=== PATIENT | male | born 1945 | race Caucasian/White ===

== ENCOUNTER → 2016-08-02 | Outpatient (REF) | payer MEDICARE, OTHER ==
[~2016-08-02] MED LIST: AMOX1TAB12 PO; CEPH-507 PO; CPR500T PO; DOXA8TAB37 PO; FLUO40CA12 PO; HYDR-3811 PO; ONDA4TAB8 PO
[2016-08-02 12:52] LABS: ALBUMIN 4.1 g/dL (3.4-5.0); ANION GAP 16.8 MEQ/L (3-15); CALCULATED IONIZED CALCIUM 4.3 mg/dL (3.8-4.6); TOTAL PROTEIN 7.3 g/dL (6.4-8.5)
== END ==
LOC: LAB 12:02
PROVIDERS: ATTEND Family Medicine
DX: Z00.00 Encounter for general adult medical examination without abnormal findings (principal); E78.4 Other hyperlipidemia
CPT/HCPCS: 80053; 80061

== ENCOUNTER 2016-08-10 08:17 | Emergency (ER) | payer MEDICARE, OTHER ==
[~2016-08-10] VITALS: Ht 182.9 cm; Wt 77.0 kg
--- OUTSIDE RECORDS SUMMARY | 2016-08-10 08:22 | XMS REPORT | Continuity of Care Document ---
Author Author [facility] Organization [facility] Address Unknown Phone Unavailable Care Team Providers Care Roll Cutting Operator Name Role Phone RAMIREZ JIMENEZ MD PCP [phone] Insurance Providers Payer Name Policy Number Subscriber Name Relationship Medicare A And B [id number] Jalil Hedrick 18 Self / Same As Patient Medicare Other [id number] Jalil Hedrick 17 Self / Same As Patient Chief Complaint and Reason for Visit Chief Complaint GI Complaint Reason for Visit Diverticulitis Problems Medical Problems Problem Onset Date Status SEPSIS 09/22/2012 Active Colonoscopy Unknown Active Syncope ~12/08/2013 Active Orthostatic tremor Unknown Active Diverticulitis Unknown Active Medications Medication Dose Route Sig Days/Qty Instructions Order Date Discontinued Date Status Doxazosin Mesylate 8 Mg ORAL DAILY 09/22/12 12/23/14 Discontinued Fluoxetine Hcl 40 Mg ORAL DAILY 12/08/13 Active Ciprofloxacin 500 Mg ORAL TWICE A DAY 14 Qty 12/23/14 Active Ondansetron 4 Mg ORAL EVERY 4HRS PRN NAUSEA 10 Qty 12/23/14 Active Hydrocodone Bit/Acetaminophen 1 Each ORAL EVERY 4HRS PRN PAIN 15 Qty Active Social History No social history. Hospital Discharge Instructions No hospital discharge instructions. Plan of Care Discharge Date 12/23/14 3:04pm Disposition 01 HOME OR SELF-CARE Condition at Discharge Stable Instructions/Education Provided Diverticulitis (ED) Diverticulitis Diet (ED) Prescriptions See Medications Section Referrals RAMIREZ JIMENEZ MD Additional Instructions/Education Cipro 500 mg two times daily Metronidazole 500 mg three times daily Zofran 4 mg ODT - dissolve in mouth every 4 hours as needed for nausea Hydrocodone 7.5/325 every 4 hours as needed for pain Return if symptoms worsen Follow up with Dr. Jimenez at 9:30 tomorrow. Functional Status No functional status results. Allergies, Adverse Reactions, Alerts Allergen Type Severity Reaction Status Last Updated No Known Allergies Allergy Active 09/22/12 Immunizations No immunization records. Vital Signs Acute Vital Signs Vital Response Date/Time Temperature (Fahrenheit) 98.5 Pulse 72 bpm Respirations 21 Height 6 ft 1 in Weight 169 lb Body Mass Index 22.0 kg/m^2 Results Test Source Date Result Interp. Ref. Range Comments Urine Leukocyte Esterase December 23, 2014 12:29pm Negative Negative Urine collection method Clean Catch Urine Urobilinogen December 23, 2014 12:29pm 0.2 mg/dL 0.2-1.0 Urine collection method Clean Catch Urine Bilirubin December 23, 2014 12:29pm Negative Negative Urine collection method Clean Catch Urine Nitrite December 23, 2014 12:29pm Negative Negative Urine collection method Clean Catch Urine Ketones December 23, 2014 12:29pm Negative Negative Urine collection method Clean Catch Urine RBC (Auto) December 23, 2014 12:29pm Negative Negative Urine collection method Clean Catch Urine Glucose (UA) December 23, 2014 12:29pm Negative Negative Urine collection method Clean Catch Urine Protein December 23, 2014 12:29pm Negative Negative Urine collection method Clean Catch Urine Specific [place] December 23, 2014 12:29pm 1.020 1.005-1.030 Urine collection method Clean Catch Urine pH December 23, 2014 12:29pm 7.5 5.0 - 8.0 Urine collection method Clean Catch Urine Clarity December 23, 2014 12:29pm Clear Urine collection method Clean Catch Urine Color December 23, 2014 12:29pm Yellow Urine collection method Clean Catch Urine Collection Type December 23, 2014 12:29pm Clean catch Urine collection method Clean Catch Absolute Band Neutrophils December 23, 2014 12:40pm 0.0 # Activated Partial Thromboplast Time September 22, 2012 4:55pm 33.5 SEC N 25.0- 39.0 Alanine Aminotransferase (ALT/SGPT) December 23, 2014 12:40pm 30 U/L N 30- 65 Albumin December 23, 2014 12:40pm 4.2 g/dL N 3.4-5.0 Albumin/Globulin Ratio December 23, 2014 12:40pm 1.312 N 1.1-1.8 Alkaline Phosphatase December 23, 2014 12:40pm 61 U/L N 38-126 Benoit Test September 22, 2012 5:20pm Pos Anion Gap December 23, 2014 12:40pm 15.7 MEQ/L H 3-15 Arterial Blood Base Excess September 22, 2012 10:50pm -4.0 L -2.0-3.0 Collected by nurse? N Arterial Blood HCO3 September 22, 2012 10:50pm 20.5 MEQ/L L 22.0-26.0 Collected by nurse? N Arterial Blood Oxygen Saturation September 22, 2012 10:50pm 97 % N 95-98 Collected by nurse? N Arterial Blood Partial Pressure CO2 September 22, 2012 10:50pm 33 mmHg L 35- 45 Collected by nurse? N Arterial Blood Partial Pressure O2 September 22, 2012 10:50pm 93 mmHg N 80- 105 Collected by nurse? N Arterial Blood Total CO2 September 22, 2012 10:50pm 21.0 COLLIN/L L 23.0-27.0 Collected by nurse? N Arterial Blood pH September 22, 2012 10:50pm 7.41 N 7.35-7.45 All ABG Results called to Dr Caballero read back the results. Called by Chey Watson at [id number] Aspartate Amino Transf (AST/SGOT) December 23, 2014 12:40pm 29 U/L N 15- 37 BUN/Creatinine Ratio December 23, 2014 12:40pm 12 N 10-20 Band Neutrophils % December 23, 2014 12:40pm 0 % N 0-6 Basophils # (Auto) December 23, 2014 12:40pm Basophils # (Manual) December 23, 2014 12:40pm 0.0 # Basophils % (Manual) December 23, 2014 12:40pm 0 % N 0-2 Basophils (%) (Auto) December 23, 2014 12:40pm 0-2 Blood Gas Liter Flow September 22, 2012 10:50pm 2.0 LPM Collected by nurse? N Blood Gas Puncture Site September 22, 2012 10:50pm Right femoral Collected by nurse? N Blood Morphology Comment December 23, 2014 12:40pm Normal NORMAL Blood Urea Nitrogen December 23, 2014 12:40pm 21 mg/dL H 7-18 C-Reactive Protein September 23, 2012 5:00am 2.80 MG/DL H 0.0-0.9 Collected by nurse? N Calcium Level December 23, 2014 12:40pm 9.7 mg/dL N 8.8-10.8 Calcium/Ionized Calcium Ratio December 23, 2014 12:40pm 4.2 mg/dL N 3.8- 4.6 Calculated Osmolality December 23, 2014 12:40pm 275 mosm/L L 280-300 Carbon Dioxide Level December 23, 2014 12:40pm 28 mmol/L N 22-29 Chloride Level December 23, 2014 12:40pm 102 mmol/L N 98-108 Cholesterol Level July 15, 2014 3:54pm 213 mg/dL H 50-200 Cholesterol/HDL Ratio July 15, 2014 3:54pm 4.0 N 0.0-5.0 Creatinine December 23, 2014 12:40pm 1.80 mg/dL H 0.8-1.5 Differential Total Cells Counted December 23, 2014 12:40pm 100 Eosinophils # December 23, 2014 12:40pm 0.0 # Eosinophils # (Auto) December 23, 2014 12:40pm Eosinophils % (Manual) December 23, 2014 12:40pm 0 % N 0-4 Eosinophils (%) (Auto) December 23, 2014 12:40pm 0-4 Erythrocyte Sedimentation Rate September 23, 2012 5:00am 19 mm/hr N 0-19 Collected by nurse? N Estimat Glomerular Filtration Rate December 23, 2014 12:40pm 45.4 Estimated GFR (Non- December 23, 2014 12:40pm 37.5 Glucose Level December 23, 2014 12:40pm 102 mg/dL DN 70-110 HDL Cholesterol July 15, 2014 3:54pm 53 mg/dL N 40-60 Hematocrit December 23, 2014 12:40pm 42.30 % N 39.00-50.00 Hemoglobin December 23, 2014 12:40pm 14.4 g/dL N 13.5-17.0 LDL Cholesterol, Calculated July 15, 2014 3:54pm 123 mg/dL N 50-130 Lab Scanned Report September 24, 2012 5:01pm ARTERIAL BLOOD GAS [id number] Lactic Acid Level September 22, 2012 6:35pm 0.8 meq/L 0.5-2.2 Lipase December 23, 2014 12:40pm 140 U/L N 23-300 Lymphocytes # December 23, 2014 12:40pm 0.6 # Lymphocytes # (Auto) December 23, 2014 12:40pm Lymphocytes % (Manual) December 23, 2014 12:40pm 4 % L 20-46 Lymphocytes (%) (Auto) December 23, 2014 12:40pm 20-46 Mean Corpuscular Hemoglobin December 23, 2014 12:40pm 30.1 PG N 26.0-34.0 Mean Corpuscular Hemoglobin Concent December 23, 2014 12:40pm 34.0 g/dL N 31.0-37.0 Mean Corpuscular Volume December 23, 2014 12:40pm 88 FL N 80-100 Mean Platelet Volume December 23, 2014 12:40pm 10.1 FL H 6.0-9.5 Metamyelocytes % December 23, 2014 12:40pm 0 % N 0-1 Monocytes # December 23, 2014 12:40pm 0.1 # Monocytes # (Auto) December 23, 2014 12:40pm Monocytes % (Manual) December 23, 2014 12:40pm 1 % L 3-11 Monocytes (%) (Auto) December 23, 2014 12:40pm 3-11 Neutrophils # December 23, 2014 12:40pm 14.0 # Neutrophils # (Auto) December 23, 2014 12:40pm Neutrophils (%) (Auto) December 23, 2014 12:40pm 51-67 Platelet Count December 23, 2014 12:40pm 191 10^3uL DN 150-450 Potassium Level December 23, 2014 12:40pm 3.9 mmol/L N 3.5-5.1 Prothromb Time International Ratio September 22, 2012 4:55pm 1.0 N 0.8-1.4 Prothrombin Time September 22, 2012 4:55pm 13.5 SEC N 12.3-14.4 Red Blood Count December 23, 2014 12:40pm 4.79 10^6uL N 4.50-5.50 Red Cell Distribution Width December 23, 2014 12:40pm 13.5 % N 11.8-15.6 Segmented Neutrophils % December 23, 2014 12:40pm 95 % H 51-67 Sodium Level December 23, 2014 12:40pm 141 mmol/L N 135-150 Total Bilirubin December 23, 2014 12:40pm 0.7 mg/dL DN 0.1-1.0 Total Protein December 23, 2014 12:40pm 7.4 g/dL N 6.4-8.5 Triglycerides Level July 15, 2014 3:54pm 183 mg/dL H 10-150 VLDL Cholesterol, Calculated July 15, 2014 3:54pm 37 mg/dL N 4.00- 40.00 White Blood Count December 23, 2014 12:40pm 14.69 10^3uL H 4.0-11.0 Blood Culture Peripheral-:Lab Indicates After [place] September 22, 2012 4:57pm No Growth in 5 days Procedures No known history of procedures. Encounters Encounter Location Date/Time Departed Emergency Room [facility] 12/23/14 12:14pm Recent Diagnosis
--- OUTSIDE RECORDS SUMMARY | 2016-08-10 08:24 | XMS REPORT | Continuity of Care Document ---
Author Author [facility] Organization [facility] Address Unknown Phone Unavailable Care Team Providers Care Supervisor [employer] Former Name Role Phone RAMIREZ JIMENEZ MD PCP [phone] Insurance Providers Payer Name Policy Number Subscriber Name Relationship Medicare A And B [id number] Jalil Hedrick 17 Self / Same As Patient Medicare Other [id number] Jalil Hedrick 17 Self / Same As [...] Urine collection method Clean Catch Urine Specific [place] December 23, 2014 12:29pm 1.020 1.005-1.030 Urine [...] September 24, 2012 5:01pm ARTERIAL BLOOD GAS [id number] Lactic Acid Level September 22, 2012 6:35pm [...] Encounters Encounter Location Date/Time Departed Emergency Room [facility] 12/23/14 12:14pm Recent Diagnosis
[2016-08-10] MEDS ORDERED: HYDR-3702 PO (08:55)
[2016-08-10 09:07] LABS: BASOPHILS % (AUTO) 0 % (0-2); EOSINOPHILS # (AUTO) 0.4 10^3uL; EOSINOPHILS % (AUTO) 4 % (0-4); LYMPHOCYTES # (AUTO) 0.8 X10^3; MEAN CORPUSCULAR HEMOGLOBIN 30.3 PG (26.0-34.0); MEAN CORPUSCULAR HGB CONC 34.3 g/dL (31.0-37.0); MEAN CORPUSCULAR VOLUME 89 FL (80-100); MEAN PLATELET VOLUME 10.3 FL (6.0-9.5); MONOCYTES # (AUTO) 1.1 X10^3; MONOCYTES % (AUTO) 9 % (3-11); NEUTROPHILS # (AUTO) 9.7 X10^3; NEUTROPHILS % (AUTO) 80 % (51-67); PLATELET COUNT 197 10^3uL (150-450); WHITE BLOOD COUNT 12.12 10^3uL (4.0-11.0)
[2016-08-10 09:14] LABS: BILIRUBIN,URINE Negative (Negative); CLARITY,URINE Clear; COLOR,URINE Yellow; GLUCOSE, URINE (UA) Negative (Negative); LEUKOCYTE ESTERASE, URINE NEGATIVE (Negative); PH,URINE 5.5 (5.0 - 8.0); UROBILINOGEN,URINE 0.2 mg/dL (0.2-1.0)
[2016-08-10 09:17] LABS: ALBUMIN 3.9 g/dL (3.4-5.0); CALCULATED IONIZED CALCIUM 3.9 mg/dL (3.8-4.6); TOTAL PROTEIN 7.2 g/dL (6.4-8.5)
[2016-08-10] MEDS ORDERED: METR500T17 PO (09:35)
[2016-08-10] MEDS ORDERED: CPR500T PO (09:35)
[2016-08-10 09:48] VITALS: BP 142/83
== END 2016-08-10 09:50 | disposition home or self-care (01) ==
LOC: ED 08:20
DX: K57.92 Diverticulitis of intestine, part unspecified, without perforation or abscess without bleeding (principal)
CPT/HCPCS: 36415; 80053; 81003; 83690; 85025; 99283